=== PATIENT | female | born 1995 | race Caucasian/White ===

== ENCOUNTER → 2018-06-27 | Outpatient (CLI) | payer BC | LOC: HYPER 06:49 | DX: L97.811 Non-pressure chronic ulcer of other part of right lower leg limited to breakdown of skin (principal); S80.871A Other superficial bite, right lower leg, initial encounter; L30.9 Dermatitis, unspecified; J45.909 Unspecified asthma, uncomplicated; W56.51XA Bitten by other fish, initial encounter; Y93.89 Activity, other specified; Y92.89 Other specified places as the place of occurrence of the external cause; Y99.8 Other external cause status ==

== ENCOUNTER → 2018-07-04 | Outpatient (CLI) | payer BC | LOC: HYPER 06:43 | DX: L97.811 Non-pressure chronic ulcer of other part of right lower leg limited to breakdown of skin (principal); S80.871D Other superficial bite, right lower leg, subsequent encounter; L30.9 Dermatitis, unspecified; J45.909 Unspecified asthma, uncomplicated; W56 Contact with nonvenomous marine animal ==